=== PATIENT | male | born 1940 | race Caucasian/White ===

== ENCOUNTER 2022-10-09 11:10 | Outpatient (CLI) | payer MEDICARE | END 2022-10-09 11:11 | disposition home or self-care (01) | LOC: CSHRAD 11:10 | PROVIDERS: ATTEND Orthopaedic Surgery | DX: Z01.818 Encounter for other preprocedural examination (principal); Z95.0 Presence of cardiac pacemaker | CPT/HCPCS: 71046 ==

== ENCOUNTER 2022-10-11 13:13 | Outpatient (CLI) | payer MEDICARE | END 2022-10-11 13:14 | disposition home or self-care (01) | LOC: CSHMRI 13:13 | PROVIDERS: ATTEND Orthopaedic Surgery | DX: M54.50 Low back pain, unspecified (principal); Z95.0 Presence of cardiac pacemaker; M47.816 Spondylosis without myelopathy or radiculopathy, lumbar region; M51.36 Other intervertebral disc degeneration, lumbar region; M43.06 Spondylolysis, lumbar region; Z98.890 Other specified postprocedural states; Z98.1 Arthrodesis status; M47.812 Spondylosis without myelopathy or radiculopathy, cervical region; M50.30 Other cervical disc degeneration, unspecified cervical region; M48.02 Spinal stenosis, cervical region | CPT/HCPCS: 72141; 72148 ==